=== PATIENT | female | born 1965 | race Caucasian/White ===

== ENCOUNTER 2017-01-22 00:27 | Emergency (ER) | payer BC ==
--- NOTE | ~2017-01-22 | EKG ---
PATIENT: JAMES CANELA UNIT #: [id number] Ventricular Rate: 52 BPM Atrial Rate: 52 BPM P-R Interval: 230 ms QRS Duration: 86 ms Q-T Interval: 438 ms QTC Calculation(Bezet): 407 ms P Jefferson: 53 degrees Calculated R Jefferson: 23 degrees Calculated T Jefferson: 52 degrees Diagnosis Line: Sinus bradycardia with 1st degree A-V block Diagnosis Line: Otherwise normal ECG Diagnosis Line: No previous ECGs available Diagnosis Line: Confirmed by SASHA GAMBLE MD ([id number]) on 01/22/2017 Diagnosis Line: 8:31:40 PM INTERPRETING MD: [email or web address]
[~2017-01-22 00:27] MED LIST: AVALIDE 150-12.1 TAB PO; AVAPRO PO; BACTRIM DS TABL1 TAB PO; CIPRO PO; CRANBERRY500 MG PO; CRESTOR PO; ESTRADIOL1 MG PO; FLEXERIL PO; LOPRESSOR PO; LOSARTAN POTASS50 MG PO; MEDROL PO; METOPROLOL TART25 MG PO; NAPROXEN PO; PAROXETINE HCL40 MG PO; PAXIL PO; PHENERGAN PO; PHENERGAN25 MG PO; VICODIN 5/1 TAB 5/50 PO; VICODIN 5/500 T1 TAB PO; WALGREENS PHARMACY; ZETIA PO; ZOCOR PO
[2017-01-22] MEDS ORDERED: LOSARTAN POTASS50 MG PO (00:33)
[2017-01-22] MEDS ORDERED: METOPROLOL TAR25 MG PO (00:33)
[2017-01-22] MEDS ORDERED: FISH OIL 1,0001 EAC1 PO (00:33)
[2017-01-22] MEDS ORDERED: PAROXETINE HCL40 M1 PO (00:34)
== END 2017-01-22 02:00 | disposition home or self-care (01) ==
LOC: CED 00:27
DX: M26.601 Right temporomandibular joint disorder, unspecified (principal); Z91.040 Latex allergy status; Z79.899 Other long term (current) drug therapy
CPT/HCPCS: 93005; 99283